=== PATIENT | female | born 1995 | race Caucasian/White ===

== ENCOUNTER 2018-09-26 20:39 | Emergency (ER) | payer OTHER ==
[2018-09-26 21:13] VITALS: BP 130/60
--- NOTE | 2018-09-26 21:21 | UC ---
Throat Pain/Nasal Kyle HPI - HPI Summary HPI Summary: 23 y/o female presents to the urgent care c/o dry cough, nasal congestion w/ yellowish nasal discharge for the past week. Pt has been taking Mucinex, Dayquil PO to alleviate symptoms w/o any improvement. This morning she developed B/L ear throbbing pain RT>LF. She feels her ear have a lot of pressure , associated w/ decrease hearing and pain. Pain is 4/210. Pt has low grade fever the first day of symptoms. Pt denies dizziness, tinnitus, MANZANARES, SOB, chest pain,abdominal pain, N/V/D. - History of Current Complaint Chief Complaint: UCRespiratory Stated Complaint: SINUS CONGESTION, AND EAR ACHE Time Seen by Provider: 09/26/18 21:20 Hx Obtained From: Patient Hx Last Menstrual Period: nexplanon ?: No Onset/Duration: Gradual Onset, Lasting Weeks - 1 week, Still Present, Worse Since - today w/ B/L ear pain Severity: Moderate Pain Intensity: 4 Pain Scale Used: 0-10 Numeric Cough: None Associated Signs & Symptoms: Positive: Sinus Discomfort, Nasal Discharge - yellwoish, Fever. Negative: Dysphagia, Wheezing, Rash - Epiglottits Risk Factors Epiglottis Risk Factors: Negative - Allergies/Home Medications Allergies/Adverse Reactions: Allergies Allergy/AdvReac Type Severity Reaction Status Date / Time No Known Allergies Allergy Verified 09/26/18 21:13 Home Medications: Home Medications Dm/Pseudoephed/Acetaminophen [Day-Time Cold-Flu Softgel] 09/26/18 [History] guaiFENesin [Mucinex] 09/26/18 [History] PMH/Surg Hx/FS Hx/Imm Hx Previously Healthy: Yes - Pt denies PMHX - Surgical History Surgical History: Yes - Family History Known Family History: Positive: None - denies FMHX - Social History Occupation: Employed Full-time Lives: With Family Alcohol Use: Weekly Substance Use Type: None Smoking Status (MU): Never Smoked Tobacco Review of Systems All Other Systems Reviewed And Are Negative: Yes Constitutional: Positive: Negative Skin: Positive: Negative Eyes: Positive: Negative ENT: Positive: Ear Ache - B/L ear pain R>L, Nasal Discharge - yellowish, Sinus Congestion, Sinus Pain/Tenderness, Other - yellowihs PND Respiratory: Positive: Cough - dry Cardiovascular: Positive: Negative Gastrointestinal: Positive: Negative Genitourinary: Positive: Negative Motor: Positive: Negative Neurovascular: Positive: Negative Musculoskeletal: Positive: Negative Neurological: Positive: Negative Psychological: Positive: Negative Is Patient Immunocompromised?: No Physical Exam - Summary Physical Exam Summary: Vitals: reviewed General: Well developed, well-nourished male patient with NAD. Head and face: Normocephalic and atraumatic, Positive tenderness over the frontal and maxillary sinuses.. Eyes: PERRLA, EOMI x 2. Normal conjunctiva. No eye discharge. ENT: B/L external ear canals clear, RT TM injected w/ erythema and yellowish discharge, LF TM mildly injected w/ erythema, no drainage. No perforatiion. Nose: edematous and erythematous nasal mucosa with with yellowish discharge and erythematous mucosa. Pharynx with erythema, no exudate. moderated yellowish PND Neck: Supple, no JVD, no carotid bruits and no lymphadenopathy. Lungs: clear, no rales, no rhonchi, no wheezes. CVS: RRR, S1 and S2 present no murmurs or gallops appreciated. Abdomen: soft nontender with positive bowel sounds. Extremities: no edema noted. Neuro: WNL. Skin: warm and dry Triage Information Reviewed: Yes Vital Signs: Initial Vital Signs Temp 99.7 F 09/26/18 21:07 Pulse 77 09/26/18 21:07 Resp 16 09/26/18 21:07 BP 130/60 09/26/18 21:07 Pulse Ox 100 09/26/18 21:07 Throat Pain/Nasal Course/Dx - Course Course Of Treatment: 23 y/o female presents to the urgent care c/o dry cough, nasal congestion w/ yellowish nasal discharge for the past week. Pt has been taking Mucinex, Dayquil PO to alleviate symptoms w/o any improvement. This morning she developed B/L ear throbbing pain RT>LF. She feels her ear have a lot of pressure , associated w/ decrease hearing and pain. Pain is 4/210. Pt has low grade fever the first day of symptoms. Pt denies dizziness, tinnitus, MANZANARES, SOB, chest pain,abdominal pain, N/V/D. Hx obtained. Pt w/ acute bacterial sinusitis and Rt otitis media on examination. Pt Rx Amoxicillin PO and flonase nasal spray. Discharge instructions explained to Pt. Advised to Return to the clinic or PCP if symptoms do not improve.Pt understood and agreed with plan of care. - Differential Dx/Diagnosis Differential Diagnosis/HQI/PQRI: Laryngitis, Otitis Media, Pharyngitis, Tonsillitis, URI Provider Diagnosis: Acute bacterial sinusitis, Right otitis media Discharge - Sign-Out/Discharge Documenting (check all that apply): Patient Departure - d/c home All imaging exams completed and their final reports reviewed: No Studies - Discharge Plan Condition: Stable Disposition: HOME Prescriptions: Amoxicillin PO (*) [Amoxicillin 875 MG (*)] 875 mg PO BID #19 tab Fluticasone NASAL SPRAY 50MCG* [Flonase NASAL SPRAY 50MCG*] 2 spray BOTH NARES DAILY #1 btl Patient Education Materials: Sinusitis (ED), Ear Infection (ED) Referrals: [facility] [place] [facility] REFERRAL [Outside] - 1 Week Additional Instructions: 1- Please increase fluid intake and rest. take full course of antibiotic to avoid resistance. Take yogurt w/ probiotics or Culturelle to protect your GI system 2-Use Flonase as directed to help drain fluid. Also buy saline drops to clear sinuses 3-take Ibuprofen PO q6-8hrs prn after meals to alleviate pain 4-Please f/u w/ your PCP in 1 week if symptoms do not improve for further management and treatment - Billing Disposition and Condition Condition: STABLE Disposition: Home - Attestation Statements Provider Attestation: I was available for consult. This patient was seen by the STEVEN. The patient was not presented to, seen by, or examined by me. -Eblert
[2018-09-26] MEDS ORDERED: Amoxicillin PO (*) 500 MG CAP PO ONE (21:41)
== END 2018-09-26 22:32 | disposition home or self-care (01) ==
LOC: UCEAST 20:39
DX: J01.90 Acute sinusitis, unspecified (principal); H66.91 Otitis media, unspecified, right ear
CPT/HCPCS: 99202; A9270-GY; G0463